=== PATIENT | male | born 1945 | race Asian ===

== ENCOUNTER 2022-10-19 11:29 | Inpatient (IN) | payer OTHER, MEDICARE ==
[~2022-10-19] VITALS: Ht 180.3 cm; Wt 68.0 kg
[2022-10-19 11:36] VITALS: BP_SYST 90; PULSE 50; RESP 18; TEMP 97.6; O2SAT 98
[2022-10-19] MEDS ORDERED: ALBUMIN HUMAN 5% 250 ML IV ONE ×2 (11:45)
--- NOTE | 2022-10-19 12:00 | NUR ---
Placed in room 7 . Placed on city director, blood pressure machine and pulse oximeter. To gown for exam. Side rails up.
--- NOTE | 2022-10-19 12:10 | NUR ---
ER at bedside examining patient.
--- NOTE | 2022-10-19 12:21 | NUR ---
Pt QUEENIE from home for unwitnessed fall Nonverbal at this time but responds to commands Hypotensive upon arrival Hx liver cancer NKDA Will continue to monitor
--- NOTE | 2022-10-19 12:22 | NUR ---
Patient carried in [facility] to radiology
[2022-10-19 13:33] LABS: BASOPHILS % (AUTO) 0.1 % (0.0-2.0); EOSINOPHILS % (AUTO) 2.2 % (0.0-4.0); HEMATOCRIT 31.6 % (36-54); LYMPHOCYTES # (AUTO) 0.3 K/uL (1.0-5.5); LYMPHOCYTES % (AUTO) 17.1 % (20.5-51.5); MEAN CORPUSCULAR HEMOGLOBIN 38 pg (27-31); MEAN CORPUSCULAR HGB CONC 35 % (32-36); MEAN CORPUSCULAR VOLUME 108 fL (79.0-98.0); MONOCYTES # (AUTO) 0.3 K/uL (0.0-1.0); MONOCYTES % (AUTO) 13.7 % (1.7-9.3); NEUTROPHILS # (AUTO) 1.2 K/uL (1.8-7.7); NEUTROPHILS % (AUTO) 66.9 % (40.0-70.0); RED BLOOD CELL COUNT(AUTO) 2.92 MIL/uL (4.2-6.2); RED CELL DISTRIBUTION WIDTH 15.3 % (9.0-15.0)
[2022-10-19 13:37] LABS: ACETONE, SERUM NEGATIVE (NEGATIVE); ANION GAP 6 (5-15); CALCIUM 7.7 mg/dL (8.4-11.0); CHLORIDE 112 mmol/L (98-107); CREATININE 0.85 mg/dL (0.55-1.30); GLUCOSE 163 mg/dL (74-106); UREA NITROGEN, BLOOD 12 mg/dL (8-21)
[2022-10-19 13:39] LABS: WHITE BLOOD COUNT (AUTO) 1.9 K/uL (4.8-10.8)
[2022-10-19 13:40] LABS: PLATELET COUNT (AUTO) 27 K/uL (130-430)
[2022-10-19 13:43] LABS: ALANINE AMINOTRANSFERASE 31 U/L (12-78); ALBUMIN 2.4 g/dL (3.4-4.8); ASPARTATE AMINOTRANSFERASE 38 U/L (10-37)
[2022-10-19 13:44] LABS: INR 1.4 (0.80-1.20); PROTHROMBIN TIME 14.4 SECS (9.5-12.5)
[2022-10-19 13:46] LABS: ACETAMINOPHEN < 1 ug/mL (1-30); ALCOHOL, BLOOD < 3 mg/dL (<10)
[2022-10-19] MEDS ORDERED: LACTULOSE 20 GM/30 ML UDC PO ONE (14:00)
--- NOTE | 2022-10-19 14:58 | NUR ---
Family at bedside [id number]
[2022-10-19] MEDS ORDERED: FURO80TA3 PO (15:19)
[2022-10-19] MEDS ORDERED: LACT10SO6 PO (15:19)
[2022-10-19 15:52] LABS: BILIRUBIN,URINE NEGATIVE (NEGATIVE); BLOOD, URINE NEGATIVE (NEGATIVE); CLARITY/URINE CLEAR (CLEAR); COLOR,URINE YELLOW (YELLOW); GLUCOSE,URINE NEGATIVE (NEGATIVE); KETONES,URINE NEGATIVE (NEGATIVE); LEUKOCYTE ESTERASE ,URINE NEGATIVE (NEGATIVE); NITRITE, URINE NEGATIVE (NEGATIVE); PROTEIN URINE NEGATIVE (NEGATIVE)
--- NOTE | 2022-10-19 16:13 | NUR ---
Pt resting comfortably in bed AOX4 VSS Able to make needs known Will continue to monitor
[2022-10-19 16:22] LABS: BARBITURATE, URINE NEGATIVE (NEG <=200); BENZODIAZEPINE, URINE NEGATIVE (NEG <=150); CANNABINOID, URINE NEGATIVE (NEG <=50); COCAINE, URINE NEGATIVE (NEG <=150); METHAMPHETAMINES SCREEN,URINE NEGATIVE (NEG <=500); OPIATE, URINE NEGATIVE (NEG <=100); PHENCYCLIDINE SCREEN,URINE NEGATIVE (NEG <=25); URINE AMPHETAMINE NEGATIVE (NEG <=500); URINE METHADONE NEGATIVE (NEG <=200); URINE OXYCODONE SCREEN NEGATIVE (NEG <=100); URINE PROPOXYPHENE SCREEN NEGATIVE (NEG <=300)
[2022-10-19 16:23] LABS: UR TRICYCLIC ANTIDEPRESSANTS NEGATIVE (NEG <=300)
[2022-10-19] MEDS: D5/0.45 NS 1,000 ML IV SCH (17:36)
[2022-10-19 19:00] VITALS: O2SAT 98
--- NOTE | 2022-10-19 19:30 | NUR ---
INTRODUCED SELF, PT RESTING, VSS. PT REQUESTING TO EAT. ADVISED PT THAT HE IS NPO AND WILL NEED TO WAIT TILL DOCTOR CLEARS HIM TO EAT. PT ACKNOWLEDGED.
--- NOTE | 2022-10-19 20:40 | NUR ---
ADMITTED THIS 76 YEAR OLD MALE FROM ER WITH CHIEF COMPLAINTS OF ALTERED MENTAL STATUS, CAME FROM HOME BROUGHT TO ER BY AMBULANCE, HISTORY OF LIVER CIRRHOSIS, CA AND ENCEPHALOPATHY. PATIENT IS AWAKE, ALERT AND ORIENTED, FOLLOWS COMMANDS. O2 AT 2LPM STARTED, SAT 95%. BUSINESS SERVICES ADMINISTRATOR IS SHOWING NSR, DENIES CHEST PAIN. IVF OF D51/2NS INFUSING AT 50 ML/HR VIA LEFT AC, GA 16. ABDOMEN IS SOFT AND NON-DISTENDED. NO GROSS BLEEDING NOTED. URINAL PROVIDED. AFEBRILE. TEMP 98.1.
--- NOTE | 2022-10-19 20:41 | NUR ---
Patient will be admitted to [facility]. Admitted to ICU unit. Will go to room 5. Belongings list completed. Complete and up to date summary report printed. SBAR report to be given at bedside with opportunity for questions.
[2022-10-19 21:00] VITALS: BP_SYST 127; BP_SYST 132; PULSE 76; PULSE 81; RESP 20; RESP 22; TEMP 98.1; O2SAT 90; O2SAT 95
--- NOTE | 2022-10-19 21:41 | NUR ---
NOTIFIED DR. MEYERS OF PATIENT'S PLATELETS OF 27. ORDERED TO TRANSFUSE I UNIT OF PLATELETS. MADE AWARE OF PATIENT'S COMPLAINTS OF ABDOMINAL PAIN, ORDERED MORPHINE 1 MG EVERY 2 HOURS PRN FOR MODERATED PAIN.
[2022-10-19] MEDS ORDERED: MORPHINE 2 MG/ML INJ. SYRINGE IVP PRN (21:45)
[2022-10-19] MEDS ORDERED: NALOXONE HCL 0.4 MG/ML AMP (NARCAN) IVP PRN (21:45)
[2022-10-19 22:00] VITALS: BP_SYST 142; PULSE 74; RESP 16; O2SAT 95
[2022-10-19] MEDS ORDERED: cefTRIAXone 1 GM IVPB PREMIX 50 ML IV ONE (22:17)
[2022-10-19] MEDS: cefTRIAXone 1 GM in D5W 50 ML IV SCH (22:59)
[2022-10-19 23:00] VITALS: BP_SYST 141; PULSE 70; RESP 17; O2SAT 95
[2022-10-20] VITALS (21 sets, daily range): BP systolic 127–152; PULSE 62–72; RESP 13–24; TEMP 97.3–98.6; O2SAT 95–99
[2022-10-20 05:43] LABS: BASOPHILS % (AUTO) 0.1 % (0.0-2.0); EOSINOPHILS # (AUTO) 0.1 K/uL (0.0-0.4); EOSINOPHILS % (AUTO) 3.3 % (0.0-4.0); HEMATOCRIT 30.8 % (36-54); HEMOGLOBIN 10.7 g/dL (14.0-18.0); LYMPHOCYTES # (AUTO) 0.5 K/uL (1.0-5.5); LYMPHOCYTES % (AUTO) 18.7 % (20.5-51.5); MEAN CORPUSCULAR HEMOGLOBIN 37 pg (27-31); MEAN CORPUSCULAR HGB CONC 35 % (32-36); MEAN CORPUSCULAR VOLUME 108 fL (79.0-98.0); MONOCYTES # (AUTO) 0.4 K/uL (0.0-1.0); NEUTROPHILS # (AUTO) 1.7 K/uL (1.8-7.7); RED BLOOD CELL COUNT(AUTO) 2.86 MIL/uL (4.2-6.2); RED CELL DISTRIBUTION WIDTH 14.9 % (9.0-15.0); WHITE BLOOD COUNT (AUTO) 2.7 K/uL (4.8-10.8)
[2022-10-20 06:14] LABS: ANION GAP 7 (5-15); CALCIUM 7.9 mg/dL (8.4-11.0); CHLORIDE 112 mmol/L (98-107); CREATININE 0.69 mg/dL (0.55-1.30); GLUCOSE 89 mg/dL (74-106); UREA NITROGEN, BLOOD 9 mg/dL (8-21)
[2022-10-20 08:44] LABS: PLATELET COUNT (AUTO) 34 K/uL (130-430)
[2022-10-20 08:45] LABS: NEUTROPHILS % (AUTO) 63.9 % (40.0-70.0)
[2022-10-20] MEDS: LACTULOSE 20 GM/30 ML UDC PO SCH (08:51)
[2022-10-20] MEDS ORDERED: cefTRIAXone 1 GM VIAL IV SCH (09:00)
[2022-10-20] MEDS ORDERED: POTASSIUM CHLORIDE 10 MEQ TAB.PRT.SR PO ONE (09:15)
--- NOTE | 2022-10-20 09:20 | NUR ---
SPOKE WITH RAOUL REGARDING NEW CONSULTATION ORDERED BY DR. MEYERS FOR DR. HAYNES IN REGARDS TO LOW WBC.
[2022-10-20] MEDS: D5/0.45 NS 1,000 ML IV SCH ×2 (14:12→22:04)
--- NOTE | 2022-10-20 18:40 | NUR ---
received pt transfer from ICU,pt awake,confused,kenyan speaking only, IVF continue infusing,NPO status,family visited at bedside and informed of pt condition per nursing level of knowledge.continue to monitor pt.
--- NOTE | 2022-10-20 20:00 | NUR ---
NURSE REPORT REPORT OBTAINED FROM [facility] NURSE REEVES AND THIS NURSE ASSUMED CARE OF PATIENT. VSS. AFEB. TELE WITH SR 65. NO C/O PAIN OR DISCOMFORT. SON NABOR AT BEDSIDE AND GAVE HIS CELLPHONE AND SISTER EMILIANO TELE . PATIENT IS NPO. IV D5 1/2 NS INFUSING AT 50 ML/HR. NO REDNESS OR SWELLING. MARIAM MARTINEZ RN
--- NOTE | 2022-10-20 21:29 | NUR ---
NURSE NOTES SON WAS CALLED AND ASKED HIM TO TALK TO HIS DAD. PATIENT ASKED FOR HIS CLOTHES AND THIS NURSE ALSO WANTED TO PLACE A CONDOM CATHETER ON HIM, SINCE HE GET UP EVERY HR TO URINATE. HE ALLOWED THE CONDOM CATH TO BE PLACED ON AND GIVEN SOCK AND BLANKETS SINCE HE SAY HE WAS COLD,
[2022-10-20] MEDS: cefTRIAXone 1 GM in D5W 50 ML IV SCH (22:07)
--- NOTE | 2022-10-21 | NUR ---
NURSE NOTES VSS. AFEB. NO C/O PAIN OR DISCOMFORT. TELE WITH .
[2022-10-21 00:12] VITALS: BP_SYST 119; PULSE 59; RESP 19; TEMP 98; O2SAT 100
--- NOTE | 2022-10-21 04:00 | NUR ---
NURSE NOTES PATIENT HAD TAKEN THE CONDOM CATHETER OFF AND VOIDING IN URINAL. LINEN CHANGED SINCE INCONTINENT WHEN SLEEPING.
--- NOTE | 2022-10-21 06:00 | NUR ---
NURSE NOTES PATIENT ASKED FOR BREAKFAST AND HE WAS TOLD BREAKFAST COMES ABOUT 0800, BUT THEN HE IS NPO. NEED TO CALL MD. MARIAM MARTINEZ RN
[2022-10-21 06:29] LABS: BASOPHILS % (AUTO) 0.1 % (0.0-2.0); EOSINOPHILS # (AUTO) 0.1 K/uL (0.0-0.4); EOSINOPHILS % (AUTO) 4.2 % (0.0-4.0); HEMATOCRIT 31.4 % (36-54); LYMPHOCYTES # (AUTO) 0.7 K/uL (1.0-5.5); LYMPHOCYTES % (AUTO) 25.9 % (20.5-51.5); MEAN CORPUSCULAR HEMOGLOBIN 38 pg (27-31); MEAN CORPUSCULAR HGB CONC 35 % (32-36); MEAN CORPUSCULAR VOLUME 107 fL (79.0-98.0); MONOCYTES # (AUTO) 0.4 K/uL (0.0-1.0); MONOCYTES % (AUTO) 16.7 % (1.7-9.3); NEUTROPHILS # (AUTO) 1.4 K/uL (1.8-7.7); NEUTROPHILS % (AUTO) 53.1 % (40.0-70.0); RED BLOOD CELL COUNT(AUTO) 2.94 MIL/uL (4.2-6.2); RED CELL DISTRIBUTION WIDTH 14.6 % (9.0-15.0); WHITE BLOOD COUNT (AUTO) 2.7 K/uL (4.8-10.8)
[2022-10-21 06:33] LABS: ANION GAP 7 (5-15); CALCIUM 7.7 mg/dL (8.4-11.0); CHLORIDE 109 mmol/L (98-107); CREATININE 0.73 mg/dL (0.55-1.30); GLUCOSE 91 mg/dL (74-106); UREA NITROGEN, BLOOD 10 mg/dL (8-21)
[2022-10-21 06:34] LABS: PLATELET COUNT (AUTO) 33 K/uL (130-430)
[2022-10-21 06:53] LABS: TOTAL IRON BIND. CAPACITY 131 ug/dL (250-450)
[2022-10-21 08:00] VITALS: BP_SYST 135; PULSE 61; RESP 20; TEMP 98.6; O2SAT 98
--- NOTE | 2022-10-21 08:15 | NUR ---
NURSE REPORT REPORT GIVEN TO DAYSHIFT NURSES LEANDRO TO ASSUME CARE OF PATIENT. [place] LARSEN. ALL QUESTIONS ANSWERED. MARIAM MARTINEZ RN
--- NOTE | 2022-10-21 09:00 | NUR ---
NURSE NOTES DR MEYERS OFFICE WAS CALLED AND NEEDED DIET ORDER. PATIENT ASKING FOR FOOD THIS AM, AND PATIENT IS NPO. DAUGHTER EMILIANO WOULD LIKE THE MD TO CALL HER AT MARIAM MARTINEZ RN
[2022-10-21] MEDS: LACTULOSE 20 GM/30 ML UDC PO SCH (09:02)
[2022-10-21 11:30] VITALS: BP_SYST 132; PULSE 65; RESP 18; TEMP 98; O2SAT 97
--- NOTE | 2022-10-21 12:00 | NUR ---
pt awake,alert,with periods of confusion,incontinent of urine and BM stool collected and sent to lab for occult blood test,safety maintained report endorsed to nurse keli
--- NOTE | 2022-10-21 15:24 | NUR ---
DAVIN Recommendations * When medically appropriate: Na2Gm diet * Snacks between meals per pt preference Please refer to Nutrition Assessment for details. DAVIN HAN Trainee Addendum: 10/21/22 at [address] Amended: Links added.
--- NOTE | 2022-10-21 16:23 | NUR ---
ST EVALUATION COMPLETED. ST TX NOT INDICATED AT THIS TIME. RECOMMEND PO DIET OF MECHANICAL SOFT AND THIN LIQUIDS. DISTANT SUPERVISION AND FULL ASPIRATION PRECAUTIONS.
[2022-10-21 17:17] VITALS: BP_SYST 137; PULSE 63; RESP 18; TEMP 98.5; O2SAT 97
--- NOTE | 2022-10-21 19:25 | NUR ---
INITIAL NOTES; endorsed by day shift. family at bedside. no acute distress. bed alarm on. call light within reach.
[2022-10-21 20:00] VITALS: BP_SYST 146; PULSE 67; RESP 20; TEMP 99.5; O2SAT 96
--- NOTE | 2022-10-21 20:30 | NUR ---
NOTES: pt. had a bowel movement, complete hs /july care done. pt. son helped to hold pt. pt. speaks Cantonese. awake, alert. IVF infusing via left arm. O2 off. denies any pain or discomfort. technical communication teacher shows sinus rhythm. moves all extremities.
[2022-10-21] MEDS: cefTRIAXone 1 GM in D5W 50 ML IV SCH (21:11)
--- NOTE | 2022-10-21 22:00 | NUR ---
NOTES: IV antibiotic infused. been voiding per urinal. repositioned.
[2022-10-21 22:31] VITALS: O2SAT 96
[2022-10-22 00:06] VITALS: BP_SYST 120; PULSE 66; RESP 20; TEMP 99.1; O2SAT 94
--- NOTE | 2022-10-22 01:30 | NUR ---
NOTES: made rounds and sleeping calmly. cardiac pattern unchanged.
--- NOTE | 2022-10-22 03:43 | NUR ---
NOTES: condition observed. IVF patent.
[2022-10-22] MEDS: D5/0.45 NS 1,000 ML IV SCH (05:17)
--- NOTE | 2022-10-22 06:30 | NUR ---
CLOSING NOTES; condition unchanged. IVF patent. PT eval today. no complaints noted. for further care and assistance.
[2022-10-22 07:00] VITALS: BP_SYST 132; PULSE 72; RESP 17; TEMP 99.4; O2SAT 94
[2022-10-22 07:55] LABS: ANION GAP 7 (5-15); CALCIUM 7.6 mg/dL (8.4-11.0); CHLORIDE 107 mmol/L (98-107); GLUCOSE 92 mg/dL (74-106); UREA NITROGEN, BLOOD 10 mg/dL (8-21)
[2022-10-22 08:00] VITALS: BP_SYST 132; PULSE 72; RESP 17; TEMP 99.2; O2SAT 94
[2022-10-22 08:07] LABS: FOLATE (FOLIC ACID) 11.9 ng/mL (>3.0)
[2022-10-22] MEDS: LACTULOSE 20 GM/30 ML UDC PO SCH (08:56)
--- NOTE | 2022-10-22 11:01 | NUR ---
CONSULTATION PAGED REASON FOR CONSULTATION: HEPAtIC ENCEPHALOPATHY WAS CONSULT CALLED? Y PERSON WHO WAS NOTIFIED: EDWINA CONSULTING PHYSICIAN: THADDEUS AN FORMING MACHINE UPKEEP MECHANIC HELPER SPECIALTY: GI FORMING MACHINE UPKEEP MECHANIC HELPER PHONE NUMBER: [phone] REQUESTING PHYSICIAN: BETINA VAUGHAN NP
[2022-10-22 12:56] VITALS: BP_SYST 125; PULSE 68; RESP 18; TEMP 99; O2SAT 98
--- NOTE | 2022-10-22 14:38 | NUR ---
PHYSICAL THERAPY CO-SIGN The Physical Therapy Progress Notes documented by Milk Pasteurizer have been reviewed. Reviewed/Co-Signed by: Umer Saxena Documentation Done by:ALFONSO IRWIN Addendum: 10/22/22 at 1439 by Umer Saxena PT Amended: Links added.
[2022-10-22 16:00] VITALS: BP_SYST 129; PULSE 70; RESP 17; TEMP 98.7; O2SAT 96
--- NOTE | 2022-10-22 17:31 | NUR ---
RDE reviewed pts current EMR including diet hx, physician notes, nursing notes, pertinent labs/meds/procedures, care trends and care activity. Admitting Diagnosis Hepatic Encephalopathy Medical History Comment: Per EMR review: PMH of liver cirrhosis, hepatocellular CA (treated), pancytopenia. Pt admitted d/t altered mental status s/p syncope. Dx of acute hepatic encephalopathy and also found w/ severe protein-calorie malnutrition. Per progress note 10/20: Dx of chronic pancytopenia 2/2 cirrhosis. Pt is Belarusian speaking only. 10/22: Per MD Muñoz, no new s/s. Plt and Hgb are stable. No need to transfuse. B12/folate/iron studies are stable. Per HVAC SHEET METAL INSTALLER Mutuc, continue Lactulose. May need SNF vs. HH, await PT evaluation. 10/22: Per PT, pt response to treatment was good - recommend home w/ 02/11 care and HHPT vs. SNF. Subjective Information RDE rounded to pts room and saw pt eat about 100% of his lunch and was alert and responsive during interview. Pt reported having no GI issues and had BM this morning. RDE asked to perform NFPE on pt and he agreed. NFPE: Severe fat and muscle wasting in temporal & neck region, BUE, and BLE. Current Diet Order/Nutrition Support Mechanical soft x 1 day Patient/Significant Other Able To Verbalize Education Provided Not Indicated Pertinent Medications Lactulose, D5NS @ 50 mL (204 kcals) Pertinent Labs Amm 115H* (worsening) 10/21: WBC 2.7L (improving), H/H 11L/31.4L (improving), Plt 33L* (improving) Height (Feet) 5 feet Height (Inches) 11.00 inches Weight (Pounds) 150 pounds (Stable since 10/21) Patient Weight 68.039 kg Body Mass Index 20.92 kg/m2 Usual Weight 150 lbs %UBW 100 %IBW 87 [place]/Adjusted Body Weight 172#/78.2kg Recent Weight Change No Weight Status Appropriate Gastrointestinal Symptoms None Food Allergies No - NKFA Usual Diet At Home Regular per RN nutrition screening Skin Integrity Comment: Roosevelt Score: 19 Wounds: none noted in EMR Edema: none noted in EMR Current % PO Good; avg 75% x 3 meal records w/ min. Assistance Estimated Energy Expenditure (kcals/day) 7478-3487 (30-35kcal/kg CBW [68kg] d/t liver cirrhosis) Estimated Protein Required (g/day) 82-102 (1.2-1.5g/kg CBW d/t liver cirrhosis) Estimated Fluid Required (l/day) 1.7-2.0 (25-30kcal/kg CBW d/t geriat maintenance) Problem/Etiology/Signs/Symptoms Inadequate nutrient intake R/T no current diet order AEB 0% PO intakes for 2 days (*Resolved). Increased energy needs R/T metabolic demands AEB estimated nutritional needs for liver cirrhosis (*Ongoing). Expected Outcomes/Goals Monitor appetite and PO intakes w/ goal of meeting >75% of estimated nutritional needs, labs trending WNL, normal GI function, and skin integrity/ wt maintenance. Dietitian Recommendations Continue Mechanical soft diet Encourage good PO intakes Follow Up Moderate Risk: F/U in 3-5 days DAVIN CESAR Trainee
--- NOTE | 2022-10-22 17:33 | NUR ---
Dietitian Recommendations Continue Mechanical soft diet Encourage good PO intakes JN, RD Trainee Please refer to Nutrition F/U for details
[2022-10-22 19:55] VITALS: BP_SYST 142; PULSE 68; RESP 18; TEMP 97.8; O2SAT 96
--- NOTE | 2022-10-22 19:55 | NUR ---
RECEIVED PT IN BED, AOX3, EVEN AND UNLABORED BREATHING, PT DENIED ANY PAIN ATT, D51/2NS AT 50CC TO LAC, WILL CONTINUE WITH POC
[2022-10-22] MEDS: cefTRIAXone 1 GM in D5W 50 ML IV SCH (21:51)
[2022-10-22] MEDS ORDERED: ENTE1TAB7 PO (22:35)
--- NOTE | 2022-10-22 22:37 | NUR ---
PAGED PAGED DR GARCIA
--- NOTE | 2022-10-22 23:18 | NUR ---
CONSULTATION PAGED/CALLED Reason for Consultation: HEPATIC ENCEPHALAPAHTY Person Who was Notified: MC Consulting Physician: OMER BEST IS BLOOD SPLATTER ANALYST Wash Driller Helper Specialty: Ordering Physician: MIRA
[2022-10-23 00:24] VITALS: BP_SYST 134; PULSE 72; RESP 18; TEMP 97.9; O2SAT 96
--- NOTE | 2022-10-23 00:46 | NUR ---
PER DR. GARCIA'S ORDER TO GIVE PT ENTECAVIR 0.5MG, UPON ENTERING PT ROOM, PT STATED THAT HE ALREADY TOOK THE MED THIS NIGHT, HIS DAUGHTER CAME AND GAVE IT TO HIM TO TAKE. CONTACTED PT DAUGHTER BY THE NAME EMILIANO ([phone]). DAUGHTER CONFIRMED THAT HER CAME THIS NIGHT AND ADMINISTERED THE MED TO PT WHO TOOK IT. INFORMED DAUGHTER THAT IS OUTSIDE HOSPITAL POLICY, ALSO INFORMED HER MED WILL BE ENDORSED TO PHARMACY AND AM SHIFT TO BE IMPUTED IN JUN, DAUGHTER VERBALIZED UNDERSTANDING
[2022-10-23] MEDS: D5/0.45 NS 1,000 ML IV SCH ×2 (01:11→22:54)
[2022-10-23 04:57] LABS: BASOPHILS % (AUTO) 0.3 % (0.0-2.0); EOSINOPHILS # (AUTO) 0.1 K/uL (0.0-0.4); EOSINOPHILS % (AUTO) 3.7 % (0.0-4.0); HEMATOCRIT 32.1 % (36-54); HEMOGLOBIN 11.3 g/dL (14.0-18.0); LYMPHOCYTES # (AUTO) 0.6 K/uL (1.0-5.5); MEAN CORPUSCULAR HEMOGLOBIN 38 pg (27-31); MEAN CORPUSCULAR HGB CONC 35 % (32-36); MEAN CORPUSCULAR VOLUME 107 fL (79.0-98.0); MONOCYTES # (AUTO) 0.6 K/uL (0.0-1.0); MONOCYTES % (AUTO) 16.7 % (1.7-9.3); NEUTROPHILS % (AUTO) 61.3 % (40.0-70.0); RED BLOOD CELL COUNT(AUTO) 3.01 MIL/uL (4.2-6.2); RED CELL DISTRIBUTION WIDTH 14.4 % (9.0-15.0); WHITE BLOOD COUNT (AUTO) 3.3 K/uL (4.8-10.8)
[2022-10-23 05:14] LABS: ANION GAP 8 (5-15); CALCIUM 7.7 mg/dL (8.4-11.0); CHLORIDE 107 mmol/L (98-107); CREATININE 0.71 mg/dL (0.55-1.30); GLUCOSE 100 mg/dL (74-106); UREA NITROGEN, BLOOD 10 mg/dL (8-21)
[2022-10-23 05:18] LABS: PLATELET COUNT (AUTO) 33 K/uL (130-430)
--- NOTE | 2022-10-23 05:25 | NUR ---
RECEIVED A CRITICAL LAB FOR PT, PLT COUNT 33, CALL MADE TO DR. MEYERS, SPOKE WITH NICOLAS WHO SAID SHE WILL RELAY MESSAGE TO DR. MEYERS, UNIT [place] BACK NUMBER PROVIDED, WILL CONTINUE TO FOLLOW UP
--- NOTE | 2022-10-23 06:05 | NUR ---
SECOND ACLL TO DR. MEYERS, SPOKE WITH NICOLAS WHO PLACED A CALL TO DR. MEYERS AND HE ASNWERED, NOTIFIED DR. MEYERS OF CRITAICAL LAB PLT COUNT 33, DR. MEYERS SAID IS OK, WILL CONTINUE WITH POC
--- NOTE | 2022-10-23 07:00 | NUR ---
PT IN BED, AOX3, EVEN AND UNLABORED BREATHING, NO C/O SOB, CP OR PAIN DURING THE SHIFT, D51/2NS AT 50CC TO LAC W/O SIGNS OF INFILTRATION, NPO FROM [place] FOR US ABD THIS AM, BEDREST, HAD BM X1 DURING SHIFT, WILL ENDORSE AM SHIFT REGARDING PENDING GI CONSULT, HOME MED TO BE GIVEN TO PHARMACY AND US ABD, PT IN STABLE CONDITION.
[2022-10-23 08:53] VITALS: BP_SYST 138; PULSE 66; RESP 18; TEMP 98; O2SAT 95
[2022-10-23] MEDS: LACTULOSE 20 GM/30 ML UDC PO SCH ×3 (09:34→22:21)
[2022-10-23] MEDS: RIFAXIMIN 550 MG TABLET PO SCH ×2 (10:35→22:22)
--- NOTE | 2022-10-23 13:44 | NUR ---
PHYSICAL THERAPY CO-SIGN The Physical Therapy Progress Notes documented by Work Order Detailer have been reviewed. Reviewed/Co-Signed by: Umer Saxena Documentation Done by:ALFONSO IRWIN Addendum: 10/23/22 at 1344 by Umer Saxena PT Amended: Links added.
[2022-10-23 14:53] VITALS: BP_SYST 142; PULSE 66; RESP 20; TEMP 98.2; O2SAT 96
[2022-10-23 16:53] VITALS: BP_SYST 138; PULSE 64; RESP 18; TEMP 98; O2SAT 99
[2022-10-23] MEDS: ENTECAVIR 1 MG PO SCH (17:25)
--- NOTE | 2022-10-23 20:00 | NUR ---
NURSE REPORT REPORT OBTAINED FROM DAY SHIFT NURSE RASHIDA AND THIS NURSE ASSUMED CARE OF PATIENT. VSS. AFEB. TELE WITH SR 81. NO C/O PAIN OR DISCOMFORT. IV D5 1/2NS INFUSING AT 50 ML/HR. VOIDS POLA URINE IN URINAL. MARIAM MARTINEZ RN
[2022-10-23 20:15] VITALS: BP_SYST 143; PULSE 72; RESP 18; TEMP 97.2; O2SAT 97
--- NOTE | 2022-10-23 20:37 | NUR ---
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
[2022-10-23] MEDS: cefTRIAXone 1 GM in D5W 50 ML IV SCH (22:22)
[2022-10-24] VITALS: PULSE 74
--- NOTE | 2022-10-24 | NUR ---
NURSE NOTES PATIENT REFUSED VS SINCE WANTS TO SLEEP. NO C/O PAIN OR DISCOMFORT.
[2022-10-24 04:00] VITALS: BP_SYST 126; PULSE 73; RESP 18; TEMP 99.2; O2SAT 94
--- NOTE | 2022-10-24 04:00 | NUR ---
NURSE NOTES VSS. AFEB. NO C/O PAIN OR DISCOMFORT. VOIDING POLA URINE IN URINAL. IV D5 1/2NS INFUSING AT 50 ML/HR. MARIAM MARTINEZ RN
--- NOTE | 2022-10-24 07:20 | NUR ---
NURSE REPORT [facility]ASHIDA TO ASSUME CARE OF PATIENT. SBAR GIVEN. ALL QUESTIONS ANSWERED. MARIAM MARTINEZ RN
[2022-10-24 08:15] VITALS: BP_SYST 131; PULSE 72; RESP 18; TEMP 98.7; O2SAT 96
[2022-10-24] MEDS: RIFAXIMIN 550 MG TABLET PO SCH (09:52)
[2022-10-24] MEDS: LACTULOSE 20 GM/30 ML UDC PO SCH ×2 (09:52→15:36)
[2022-10-24] MEDS ORDERED: LACT10SO7 PO (10:43)
[2022-10-24] MEDS ORDERED: RIFA550T5 PO (10:43)
[2022-10-24 12:12] VITALS: BP_SYST 133; PULSE 69; RESP 18; TEMP 98.2; O2SAT 97
[2022-10-24 16:32] VITALS: BP_SYST 133; PULSE 69; RESP 18; TEMP 98.2; O2SAT 97
[2022-10-24] MEDS: D5/0.45 NS 1,000 ML IV SCH (17:30)
[2022-10-24] MEDS: ENTECAVIR 1 MG PO SCH (18:01)
--- NOTE | 2022-10-24 18:27 | NUR ---
D/C Patient to home, picked up by son via personal vehicle. Patient's a/o x4, verbally responsive in no acute distress. Patient speaks mostly Cantonese but understands a little Sudanese. Son is at the bedside. Patient and son given medication reconciliation form and D/C instructions. Exit Care provided. Patient and son verbalized understanding. MD discussed with patient the results and treatment provided. Ambulatory w/steady gait with walker and stable for discharge to home. Patient in stable condition, ID band removed. IV catheter removed, intact and dressing applied, no active bleeding. All belongings sent with patient. VSS. Patient has no c/o pain or discomfort.
== END 2022-10-24 18:12 | disposition home or self-care (01) | DRG 441 ==
LOC: SED 11:29 → SIC 16:05 → STU 10-20 18:46
PROVIDERS: ADMIT Internal Medicine; ATTEND Internal Medicine
PROC: 30233R1 Transfusion of Nonautologous Platelets into Peripheral Vein, Percutaneous Approach (ICD-10-PCS; principal; 2022-10-20)
DX: K76.82 Hepatic encephalopathy (principal); E43 Unspecified severe protein-calorie malnutrition; D61.818 Other pancytopenia; C22.0 Liver cell carcinoma; B19.10 Unspecified viral hepatitis B without hepatic coma; K74.60 Unspecified cirrhosis of liver; Z85.05 Personal history of malignant neoplasm of liver; Z68.20 Body mass index [BMI] 20.0-20.9, adult
CPT/HCPCS: 36415; 70450-TC; 71045; 76376; 76700-TC; 80048; 80053; 80307; 81003; 82009; 82140; 82272; 82550; 82607; 82728; 82746; 83540; 83550; 83605; 83880; 84484; 85025; 85610-TC; 85730-TC; 86886; 86900; 86901; 87040; 92610-GN; 93005; 96365; 97116-GP; 97530-GP; 99291; G0378; G0480; G0481; G0482; J0696; J7060; P9034; P9041